=== PATIENT | male | born 1965 | race Hispanic/Latino ===

== ENCOUNTER 2019-12-18 21:30 | Emergency (ER) | payer SELFPAY ==
[~2019-12-18] VITALS: Ht 167.6 cm; Wt 99.8 kg
--- NOTE | 2019-12-18 22:41 | NUR ---
AWAITING RAD REPORTS
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
--- NOTE | 2019-12-18 23:40 | NUR ---
INFORMED OF RAD RESULTS IN.
[2019-12-18] MEDS ORDERED: CYCLOBENZAPRINE5 MG PO (23:49)
[2019-12-19] MEDS ORDERED: IBUPROFEN 400 MG TAB ONE (00:05)
[2019-12-19] MEDS ORDERED: IBUPROFEN 400 MG TAB PO ONE (00:15)
== END 2019-12-19 00:23 | disposition home or self-care (01) ==
LOC: FSED 21:30
DX: G89.11 Acute pain due to trauma (principal); S40.011A Contusion of right shoulder, initial encounter; S40.021A Contusion of right upper arm, initial encounter; S40.012A Contusion of left shoulder, initial encounter; S40.022A Contusion of left upper arm, initial encounter; V53.5XXA Driver of pick-up truck or van injured in collision with car, pick-up truck or van in traffic accident, initial encounter; Y92.488 Other paved roadways as the place of occurrence of the external cause
CPT/HCPCS: 71045; 99283